=== PATIENT | male | born 1975 | race Caucasian/White ===

== ENCOUNTER 2019-06-19 13:13 | Emergency (ER) | payer BC ==
--- NOTE | 2019-06-19 13:35 | EDM.PDOC ---
ED HPI GENERAL MEDICAL PROBLEM - General Chief Complaint: Upper Extremity Injury/Pain Stated Complaint: PAIN IN LT WRIST Time Seen by Provider: 06/19/19 13:16 Source of Information: Reports: Patient History Limitations: Reports: No Limitations - History of Present Illness INITIAL COMMENTS - FREE TEXT/NARRATIVE: HISTORY AND PHYSICAL: History of present illness: Patient is a 43-year-old male who presents to the emergency room today with complaints of hand and wrist pain on the right. States approximately 2 weeks ago he heard a popping sensation just below his fifth digit and since that time has had increased pain. He states he experiences the pain most when he is grasping or palpating the area. States the pain starts just below the fifth digit and goes up into his wrist and has progressively gotten higher along the upper extremity. Besides noticing the "popping sensation" he does not recall any physical injury or trauma. He denies any numbness, tingling or saddle paresthesias. Denies any weakness of the extremity. He is left-hand dominant. He has been using [id number] Tylenol and ibuprofen with minimal and unsatisfactory relief. Review of systems: As per history of present illness and below otherwise all systems reviewed and negative. Past medical history: As per history of present illness and as reviewed below otherwise noncontributory. Surgical history: As per history of present illness and as reviewed below otherwise noncontributory. Social history: See social history for further information Family history: As per history of present illness and as reviewed below otherwise noncontributory. Physical exam: General: Well developed and well nourished HEENT: Atraumatic, normocephalic, pupils equal and reactive bilaterally, negative for conjunctival pallor or scleral icterus, mucous membranes moist, TMs normal bilaterally, throat clear, neck supple, nontender, trachea midline. No drooling or trismus noted. No meningeal signs. No hot potato voice noted. Lungs: Clear to auscultation, breath sounds equal bilaterally. Heart: S1S2, regular rate and rhythm without overt murmur Abdomen: Soft, nondistended, nontender. Skin: Intact, warm, dry. No lesions or rashes noted. Extremities: Atraumatic, moves all extremities per self without difficulty or deficits. Strong equal grasp bilaterally. Strong radial pulse. Cap refill less than 3 seconds. Neurovascular unremarkable. Neuro: Awake, alert, oriented. Cranial nerves II through XII unremarkable. Cerebellum unremarkable. Motor and sensory unremarkable throughout. Exam nonfocal. Notes: X-ray shows no acute findings. We discussed following up with orthopedics. Supportive care measures were reviewed and discussed. Voices understanding and is agreeable to plan of care. Denies any further questions or concerns at this time. Diagnostics: X-ray Therapeutics: Splint Prescription: Diclofenac Impression: Right hand pain Plan: 1. Rest, ice, elevate the affected extremity. Please wear the splint as directed. 2. Tylenol as needed for pain management. Do NOT take any additional NSAIDS such as Aleve or Ibuprofen while taking Diclofenac. Please take with food. 3. Follow up with the Orthopedic provider as we discussed. Return to the ED as needed and as discussed. Definitive disposition and diagnosis as appropriate pending reevaluation and review of above. Right Wrist Pain Score (Numeric/FACES): 0 - Related Data Allergies Allergy/AdvReac Type Severity Reaction Status Date / Time meperidine [From Demerol] Allergy Hallucinati Verified 06/19/19 13:30 ons Home Meds: Home Meds Acetaminophen [Tylenol] 800 mg PO QID 06/19/19 [History] Diclofenac Sodium [Voltaren] 75 mg PO BIDMEALS PRN #30 tab.cr 06/19/19 [Rx] Ibuprofen [Motrin] 1,500 mg PO QID 06/19/19 [History] Review of Systems - Review of Systems Review Of Systems: Comprehensive ROS is negative, except as noted in HPI. ED EXAM, GENERAL - Physical Exam Exam: See Below (See dictation) Course - Vital Signs Last Recorded V/S: Last Vital Signs Temp 97.5 F 06/19/19 13:27 Pulse 88 06/19/19 13:27 Resp 20 06/19/19 13:27 BP 151/85 H 06/19/19 13:27 Pulse Ox 97 06/19/19 13:27 - Orders/Labs/Meds Orders: Active Orders 24 hr Category Date Time Status DME for Discharge [COMM] Stat Oth 06/19/19 14:08 Ordered Departure - Departure Time of Disposition: 14:09 Disposition: Home, Self-Care 01 Clinical Impression: Right hand pain - Discharge Information Prescriptions: Diclofenac Sodium [Voltaren] 75 mg PO BIDMEALS PRN #30 tab.cr PRN Reason: Pain Instructions: Wrist Pain, Adult, [id number] Referrals: PCP,None [Primary Care Provider] - Forms: ED Department Discharge Additional Instructions: The following information is given to patients seen in the emergency department who are being discharged to home. This information is to outline your options for follow-up care. We provide all patients seen in our emergency department with a follow-up referral. The need for follow-up, as well as the timing and circumstances, are variable depending upon the specifics of your emergency department visit. If you don't have a primary care physician on staff, we will provide you with a referral. We always advise you to contact your personal physician following an emergency department visit to inform them of the circumstance of the visit and for follow-up with them and/or the need for any referrals to a consulting specialist. The emergency department will also refer you to a specialist when appropriate. This referral assures that you have the opportunity for follow-up care with a specialist. All of these measure are taken in an effort to provide you with optimal care, which includes your follow-up. Under all circumstances we always encourage you to contact your private physician who remains a resource for coordinating your care. When calling for follow-up care, please make the office aware that this follow-up is from your recent emergency room visit. If for any reason you are refused follow-up, please contact the [facility] at and asked to speak to the emergency department charge nurse. [facility] [address] [place] [id number] [address] 1. Rest, ice, elevate the affected extremity. Please wear the splint as directed. 2. Tylenol as needed for pain management. Do NOT take any additional NSAIDS such as Aleve or Ibuprofen while taking Diclofenac. Please take with food. 3. Follow up with the Orthopedic provider as we discussed. Return to the ED as needed and as discussed. Sepsis Event Note - Evaluation Sepsis Screening Result: No Definite Risk - Focused Exam Vital Signs: Vital Signs Temp Pulse Resp BP Pulse Ox 06/19/19 13:27 97.5 F 88 20 151/85 H 97 Date Exam was Performed: 06/19/19 Time Exam was Performed: 14:28 - My Orders Last 24 Hours: My Active Orders 06/19/19 14:08 DME for Discharge [COMM] Stat - Assessment/Plan Last 24 Hours: My Active Orders 06/19/19 14:08 DME for Discharge [COMM] Stat
--- NOTE | 2019-06-19 14:06 | CR ---
INDICATION: Pain and popping at the ulnar aspect right hand on going for 2 days. TECHNIQUE: Three views right hand. IMPRESSION: No fracture. No bone lesion. Joint spaces are maintained. Soft tissues appear normal. Dictated by Teo Saleh MD @ Jun 19 2019 2:05PM Signed by Dr. Teo Saleh @ Jun 19 2019 2:05PM
== END 2019-06-19 14:26 | disposition home or self-care (01) ==
LOC: MW.ED 13:13
DX: M79.641 Pain in right hand (principal); Z88.8 Allergy status to other drugs, medicaments and biological substances
CPT/HCPCS: 73130-26-RT; 73130-RT; 99282; 99283-25

== ENCOUNTER 2020-09-22 10:04 | Day surgery (SDC) | payer BC ==
--- NOTE | 2020-09-22 09:47 | PCM.PREANE ---
Preanesthetic Assessment - Anesthesia/Transfusion/Family Hx Anesthesia History: Prior Anesthesia Without Reaction Transfusion History: No Prior Transfusion(s) - Review of Systems General: No Symptoms Pulmonary: No Symptoms Cardiovascular: No Symptoms Gastrointestinal: Decreased Appetite, Difficulty Swallowing Neurological: No Symptoms Other: Reports: None - Physical Assessment NPO Status Date: 09/22/20 NPO Status Time: 00:00 Height: 6 ft 2 in Weight: 309 lb ASA Class: 3 Mental Status: Alert & Oriented x3 Airway Class: Mallampati = 2 Dentition: Reports: Normal Dentition ROM/Head Extension: Full Lungs: Clear to Auscultation, Normal Respiratory Effort Cardiovascular: Regular Rate, Regular Rhythm - Allergies Allergies/Adverse Reactions: Allergies Allergy/AdvReac Type Severity Reaction Status Date / Time meperidine [From Demerol] Allergy Hallucinati Verified 09/18/20 09:11 ons prednisone Allergy Itching Verified 09/18/20 09:13 - Acknowledgements Anesthesia Type Planned: General Anesthesia Pt an Appropriate Candidate for the Planned Anesthesia: Yes Alternatives and Risks of Anesthesia Discussed w Pt/Guardian: Yes Pt/Guardian Understands and Agrees with Anesthesia Plan: Yes PreAnesthesia Questionnaire HEENT History: Reports: None Cardiovascular History: Reports: Arrhythmia Respiratory History: Reports: Sleep Apnea Other Respiratory History: does not use CPAP Gastrointestinal History: Reports: GERD, Other (See Below) Other Gastrointestinal History: difficulty swallowing solid foods at times Genitourinary History: Reports: None Musculoskeletal History: Reports: Fracture Other Musculoskeletal History: ribs, crush L leg, thumb, nose, L fingers, Neurological History: Reports: None Psychiatric History: Reports: None Endocrine/Metabolic History: Reports: Obesity/BMI 30+ Hematologic History: Reports: None Immunologic History: Reports: None Oncologic (Cancer) History: Reports: None Dermatologic History: Reports: None - Infectious Disease History Infectious Disease History: Reports: Chicken Pox, Influenza - Past Surgical History Head Surgeries/Procedures: Reports: None HEENT Surgical History: Reports: None Cardiovascular Surgical History: Reports: None Respiratory Surgical History: Reports: None GI Surgical History: Reports: Appendectomy Male Surgical History: Reports: None Endocrine Surgical History: Reports: None Neurological Surgical History: Reports: None Musculoskeletal Surgical History: Reports: None Oncologic Surgical History: Reports: None Dermatological Surgical History: Reports: None - SUBSTANCE USE Tobacco Use Status *Q: Former Tobacco User Tobacco Use Within Last Twelve Months: No - HOME MEDS Home Medications: Home Meds Pantoprazole Sodium [Protonix] 40 mg PO DAILY 09/18/20 [History] - CURRENT (IN HOUSE) MEDS Current Meds: Current Medications Lactated Ringer's (Ringers, Lactated) 1,000 mls @ 125 mls/hr IV ASDIRECTED ROLANDO Discontinued Medications Dexmedetomidine HCl (Dexmedetomidine 200 Mcg/2 Ml Sdv) Confirm Administered Dose 200 mcg .ROUTE .STK-MED ONE Stop: 09/22/20 09:23 Fentanyl (Fentanyl 100 Mcg/2 Ml Sdv) Confirm Administered Dose 100 mcg .ROUTE .STK-MED ONE Stop: 09/22/20 09:23 Lidocaine (Lidocaine 2% 5 Ml Sdv) Confirm Administered Dose 5 ml .ROUTE .STK-MED ONE Stop: 09/22/20 09:22 Ondansetron HCl (Ondansetron 4 Mg/2 Ml Sdv) Confirm Administered Dose 4 mg .ROUTE .STK-MED ONE Stop: 09/22/20 09:22 Propofol (Propofol 200 Mg/20 Ml Sdv) Confirm Administered Dose 200 mg .ROUTE .STK-MED ONE Stop: 09/22/20 09:22
[~2020-09-22 10:04] MED LIST: Dexmedetomidine 200 MCG/2 ML SDV ONE; Lactated Ringers 1,000 ML IV SCH; Lidocaine 2% 5 ML SDV ONE; Ondansetron 4 MG/2 ML SDV ONE; Propofol 200 MG/20 ML SDV ONE; fentaNYL 100 MCG/2 ML SDV ONE
[2020-09-22] MEDS ORDERED: Naloxone 0.4 MG/ML Syringe ONE (12:06)
--- NOTE | 2020-09-22 12:23 | PCM.POSTAN ---
POST ANESTHESIA ASSESSMENT - MENTAL STATUS Mental Status: Alert, Oriented - VITAL SIGNS Vital Signs: Last Vital Signs Temp 97.5 F 09/22/20 10:23 Pulse 55 L 09/22/20 10:23 Resp 16 09/22/20 10:23 BP 152/84 H 09/22/20 10:23 Pulse Ox 95 09/22/20 10:23 - RESPIRATORY Respiratory Status: Respiratory Rate WNL, Airway Patent, O2 Saturation Stable - CARDIOVASCULAR CV Status: Pulse Rate WNL, Blood Pressure Stable - GASTROINTESTINAL GI Status: No Symptoms - POST OP HYDRATION Hydration Status: Adequate & Stable
--- NOTE | 2020-09-22 12:23 | PCM48HPAN ---
Post Anesthesia Note - EVALUATION WITHIN 48HRS OF ANESTHETIC Vital Signs in Normal Range: Yes Patient Participated in Evaluation: Yes Respiratory Function Stable: Yes Airway Patent: Yes Cardiovascular Function Stable: Yes Hydration Status Stable: Yes Pain Control Satisfactory: Yes Nausea and Vomiting Control Satisfactory: Yes Mental Status Recovered: Yes Vital Signs: Last Vital Signs Temp 97.5 F 09/22/20 10:23 Pulse 55 L 09/22/20 10:23 Resp 16 09/22/20 10:23 BP 152/84 H 09/22/20 10:23 Pulse Ox 95 09/22/20 10:23
--- NOTE | 2020-09-22 12:38 | PCM.OPNOTE ---
- General Post-Op/Procedure Note Date of Surgery/Procedure: 09/22/20 Operative Procedure(s): Esophagogastroduodenoscopy with gastric biopsies Pre Op Diagnosis: DYSPHAGIA. ODYNOPHAGIA. Post-Op Diagnosis: Acute gastritis w/ superficial gastric ulcerations. Anesthesia Technique: MAC (ASA II) Primary Surgeon: Júnior Morales Condition: Good Free Text/Narrative:: Intake & Output 09/22/20 09/22/20 09/22/20 03:59 11:59 19:59 Intake Total 950 Balance 950 DICTATION [id number] CPT CODE 58669
[2020-09-22] MEDS ORDERED: Lactated Ringers 1,000 ML IV SCH (12:45)
--- NOTE | 2020-09-22 13:07 | OR ---
SURGEON: Júnior Morales M.D. DATE OF PROCEDURE: 09/22/2020 OPERATION PERFORMED: Esophagogastroduodenoscopy with gastric biopsy. PRIMARY SURGEON: Júnior Morales M.D. ANESTHESIA: MAC. ASA CLASSIFICATION: II. PREOPERATIVE DIAGNOSIS: Dysphagia with odynophagia. POSTOPERATIVE DIAGNOSIS: Acute gastritis with superficial distal gastric ulcerations. DESCRIPTION OF PROCEDURE: The patient was taken to the endoscopy room and maintained on the endoscopy cart in the supine position. Time-out was called for appropriate identification of the patient and procedure. Monitored anesthesia care was provided. The bite block was placed between the patient's teeth. The gastroscope was inserted through the bite block into the oropharynx and advanced without difficulty through the esophagus and stomach into the duodenum, where examination was now carried out in a retrograde fashion. The duodenum showed no acute inflammatory changes or ulcerations. The stomach did show very acute gastritis with superficial gastric ulcerations. No acutely bleeding lesions were noted. The entire stomach showed this inflammatory pattern. The gastroscope was retroflexed to visualize the proximal stomach, where again significant gastritis was noted. No acute ulcerations or erosions were noted proximally. The GE junction was well defined and showed no acute inflammatory changes or ulcerations. The esophagus itself demonstrated good contractility. No mid or proximal lesions were identified. The vocal cords were briefly visualized as the scope was withdrawn. No vocal cord lesions were identified. The gastroscope was then removed with the patient having tolerated the procedure well. He will be started on Carafate and Nexium and be seen back in the office to discuss the endoscopic findings and pathology report. MADIE / JULIA /[id number]
== END 2020-09-22 13:03 | disposition home or self-care (01) ==
LOC: MW.SDS 10:04
PROVIDERS: ATTEND Surgery
DX: K29.00 Acute gastritis without bleeding (principal); K29.50 Unspecified chronic gastritis without bleeding; B96.81 Helicobacter pylori [H. pylori] as the cause of diseases classified elsewhere; R07.89 Other chest pain; E66.9 Obesity, unspecified; Z68.39 Body mass index [BMI] 39.0-39.9, adult; Z88.8 Allergy status to other drugs, medicaments and biological substances; Z79.899 Other long term (current) drug therapy; Z87.891 Personal history of nicotine dependence
CPT/HCPCS: 43239; A9270; J2405; J2704; J3010; J7120; 00731; 88305; 88342

== ENCOUNTER 2020-11-14 13:21 | Emergency (ER) | payer BC ==
[2020-11-14] MEDS ORDERED: Morphine 4 MG/ML Syringe IVPUSH ONE (17:31)
[2020-11-14] MEDS ORDERED: Ondansetron 4 MG/2 ML SDV IVPUSH ONE (17:31)
[2020-11-14] MEDS ORDERED: Sodium Chloride 0.9% 1,000 ML IV ONE (17:31)
[2020-11-14 17:51] LABS: BLOOD UREA NITROGEN,BUN 13 mg/dL (7.0-18.0); CHLORIDE,CL 97 mmol/L (98-107); GLUCOSE RANDOM 132 mg/dL (74-106); POTASSIUM,K 4.1 mmol/L (3.5-5.1); SODIUM,NA 131 mmol/L (136-148)
--- NOTE | 2020-11-14 18:06 | EDM.PDOC ---
ED HPI GENERAL MEDICAL PROBLEM - General Chief Complaint: Genitourinary Problem Stated Complaint: CANT URINATE Time Seen by Provider: 11/14/20 16:03 Source of Information: Reports: Patient History Limitations: Reports: No Limitations - History of Present Illness INITIAL COMMENTS - FREE TEXT/NARRATIVE: HISTORY AND PHYSICAL: History of present illness: Patient is a 44-year-old male who presents to the emergency room with complaints of right flank pain and urinary retention. Patient states he voided normally last evening. Woke up with mild right flank pain. Noticed he was only urinating a small amount, last void at 10:45 AM. Since then he has had increased pain in the suprapubic area as he has been unable to void. Does have a history of urinary tract infections. Patient denies any injury/trauma, fever, chills, headache, change in vision, syncope or near syncope. Denies any chest pain, back pain, shortness of breath or cough. Denies any abdominal pain, nausea, vomiting, diarrhea, constipation or dysuria. Denies any testicular redness, swelling or tenderness. Has not noted any blood in urine or stool. Patient has been eating and drinking appropriately. Review of systems: As per history of present illness and below otherwise all systems reviewed and negative. Past medical history: As per history of present illness and as reviewed below otherwise noncon tributory. Surgical history: As per history of present illness and as reviewed below otherwise noncontributory. Social history: See social history for further information Family history: As per history of present illness and as reviewed below otherwise noncontributory. Physical exam: General: Well developed and well nourished. Alert and orientated x 3. Nontoxic in appearance and in no acute distress. Vital signs are stable and have been reviewed by me. Nursing notes were reviewed. HEENT: Atraumatic, normocephalic, pupils equal and reactive bilaterally, negative for conjunctival pallor or scleral icterus, mucous membranes moist, TMs normal bilaterally, throat clear, neck supple, nontender, trachea midline. No drooling or trismus noted. No meningeal signs. No hot potato voice noted. Lungs: Clear to auscultation bilaterally. No wheezes, rales, or rhonchi. Chest nontender. Normal work of breathing, no accessory muscles used. Heart: S1S2, regular rate and rhythm without overt murmur, gallops, or rubs. No JVD. No peripheral edema Abdomen: Soft, nondistended, suprapubic tenderness. Normoactive bowel sounds. Negative for masses. Right sided costovertebral tenderness. Skin: Intact, warm, dry. No lesions or rashes noted. Hematologic: No petechiae or purpra. Mucosa appropriate color and normal nail bed color and refill. Extremities: Atraumatic, moves all extremities per self without difficulty or deficits, negative for cords or calf pain. Neurovascular unremarkable. Neuro: Awake, alert, oriented. Cranial nerves II through XII unremarkable. Cerebellum unremarkable. Motor and sensory unremarkable throughout. Exam nonfocal. Psychiatric: Mood and affect are appropriate. Normal thought process. Answering questions appropriately. Please note that the patient was seen and evaluated during the 2019 SARS-CoV-2 novel coronavirus pandemic period. Community viral transmission is ongoing at time of this encounter and the emergency department is operating under pandemic response procedures. Medical Decision Making: Patient is a 44-year-old male who presents to the emergency room with complaints of right flank pain and urinary retention. Patient has no history of kidney sto reinaldo. States he has had bladder infections which have "gotten really bad". Bladder scanner shows 410 mL. Lab work is pending. Patient has a leukocytosis of 19.4 with shift. Patient has tried multiple times to get a urine, will straight cath, urine pending CT shows no urinary tract stone or obstruction is evident. The kidneys are normal in size and shape and demonstrate normal nephrograms. A Nick catheter is present in the bladder, and the bladder is empty. The prostate is negative. Etiology of right flank pain and leukocytosis not evident. Fatty liver. Patient states the Nick catheter is very uncomfortable, we discussed the benefits of keeping the Nick in while he is treating the urinary tract infection especially with his urinary retention. He would prefer to have the Nick catheter removed at this time. Will remove for patient comfort and request. Patient is able to tolerate oral fluids and he has been eating well. Due to the COVID-19 crisis, there are no beds available. We will trial outpatient oral antibiotics. I have talked with the patient about today's findings, in addition to providing specific details for plan of care. Patient is agreeable and understanding. He states he is comfortable being discharged home with outpatient antibiotic therapy and pain management. We discussed in great length signs and symptoms that would prompt him to the return to the emergency room. Reassessment at the time of disposition demonstrates that the patient is in no acute distress. The patient is stable for discharge, counseling was provided and we discussed in great detail signs and symptoms that would prompt them to return to the Emergency Department. Medication and supportive care measures were reviewed and discussed. Voices understanding and is agreeable to plan of care. Denies any further questions or concerns at this time. Diagnostics: CBC, CMP, UA, urine culture Therapeutics: IV fluid, morphine, Zofran, Rocephin Prescription: Cipro, Pyridium, [place] Impression: Pyelonephritis Plan: 1. You were evaluated today on an emergent basis. Your urine shows a significant urinary tract infection. Please take the antibiotic as directed. 2. You can alternate Tylenol and ibuprofen as needed for pain and fever management. 3. We encourage you to follow up with your primary care provider and/or recommended specialist in the next few days for re-evaluation and further care/management. 4. If your symptoms should worsen, new symptoms develop or any of the signs and symptoms we discussed should arise please return to the emergency room or call 911 (if needed). Definitive disposition and diagnosis as appropriate pending reevaluation and review of above. Bladder Pain Score (Numeric/FACES): 8 - Related Data Allergies Allergy/AdvReac Type Severity Reaction Status Date / Time meperidine [From Demerol] Allergy Hallucinati Verified 09/18/20 09:11 ons prednisone Allergy Itching Verified 09/18/20 09:13 Home Meds: Home Meds Pantoprazole Sodium [Protonix] 40 mg PO BID 30 Days #60 tab-cap 09/22/20 [Rx] Sucralfate 1 gm PO QID 30 Days #120 tablet 09/22/20 [Rx] Ciprofloxacin HCl [Cipro] 500 mg PO BID 7 Days #14 tablet 11/14/20 [Rx] Hydrocodone/Acetaminophen [HYDROcodone-Acetaminophen 5-325 MG] 1 - 2 tab PO Q4HR PRN #20 tablet 11/14/20 [Rx] Phenazopyridine HCl [Pyridium] 100 mg PO TID 2 Days #6 tablet 11/14/20 [Rx] Past Medical History HEENT History: Reports: None Cardiovascular History: Reports: Arrhythmia Respiratory History: Reports: Sleep Apnea Other Respiratory History: does not use CPAP Gastrointestinal History: Reports: GERD, Other (See Below) Other Gastrointestinal History: difficulty swallowing solid foods at times Genitourinary History: Reports: None Musculoskeletal History: Reports: Fracture Other Musculoskeletal History: ribs, crush L leg, thumb, nose, L fingers, Neurological History: Reports: None Psychiatric History: Reports: None Endocrine/Metabolic History: Reports: Obesity/BMI 30+ Hematologic History: Reports: None Immunologic History: Reports: None Oncologic (Cancer) History: Reports: None Dermatologic History: Reports: None - Infectious Disease History Infectious Disease History: Reports: Chicken Pox, Influenza - Past Surgical History Head Surgeries/Procedures: Reports: None HEENT Surgical History: Reports: None Cardiovascular Surgical History: Reports: None Respiratory Surgical History: Reports: None GI Surgical History: Reports: Appendectomy, EGD Male Surgical History: Reports: None Endocrine Surgical History: Reports: None Neurological Surgical History: Reports: None Musculoskeletal Surgical History: Reports: None Oncologic Surgical History: Reports: None Dermatological Surgical History: Reports: None Social & Family History - Family History Family Medical History: No Pertinent Family History - Tobacco Use Tobacco Use Status *Q: Current Every Day Tobacco User Years of Tobacco use: 5 Packs/Tins Daily: 0.5 - Recreational Drug Use Recreational Drug Use: No ED ROS GENERAL - Review of Systems Review Of Systems: Comprehensive ROS is negative, except as noted in HPI. ED EXAM, RENAL/ - Physical Exam Exam: See Below (See dictation) Course - Vital Signs Last Recorded V/S: Last Vital Signs Temp 98.2 F 11/14/20 18:20 Pulse 82 11/14/20 18:20 Resp 18 11/14/20 18:20 BP 138/73 11/14/20 18:20 Pulse Ox 97 11/14/20 18:20 - Orders/Labs/Meds Orders: Active Orders 24 hr Category Date Time Status Bladder Scan [RC] ASDIRECTED Care 11/14/20 15:52 Active Insert Urinary Catheter [OM.PC] Q24H Care 11/14/20 17:00 Ordered Urinary Catheter Assessment [RC] ASDIRECTED Care 11/14/20 17:01 Active CULTURE URINE [MREF] Stat Lab 11/14/20 19:20 Received cefTRIAXone [Rocephin in Dextrose,Iso-Osm 1 GM/50 ML] 1 Med 11/14/20 19:51 Active gm Premix Bag 1 bag IV ONETIME Medication Orders Ceftriaxone Sodium/Dextrose 1 (gm/ Premix) 50 mls @ 100 mls/hr IV ONETIME ONE Stop: 11/14/20 20:20 Last Admin: 11/14/20 19:59 Dose: 100 mls/hr Documented by: Labs: Laboratory Tests 11/14/20 11/14/20 11/14/20 Range/Units 17:19 17:19 19:20 WBC 19.44 H (4.0-11.0) K/uL RBC 5.36 (4.50-5.90) M/uL Hgb 17.2 H (13.0-17.0) g/dL Hct 47.5 (38.0-50.0) % MCV 88.6 (80.0-98.0) fL MCH 32.1 H (27.0-32.0) pg MCHC 36.2 (31.0-37.0) g/dL RDW Std Deviation 42.1 (28.0-62.0) fl RDW Coeff of Sae 13 (11.0-15.0) % Plt Count 242 (150-400) K/uL MPV 10.80 (7.40-12.00) fL Neut % (Auto) 85.9 H (48.0-80.0) % Lymph % (Auto) 6.8 L (16.0-40.0) % [place] % (Auto) 7.1 (0.0-15.0) % Eos % (Auto) 0.1 (0.0-7.0) % Baso % (Auto) 0.1 (0.0-1.5) % Neut # (Auto) 16.7 H (1.4-5.7) K/uL Lymph # (Auto) 1.3 (0.6-2.4) K/uL [place] # (Auto) 1.4 H (0.0-0.8) K/uL Eos # (Auto) 0.0 (0.0-0.7) K/uL Baso # (Auto) 0.0 (0.0-0.1) K/uL Nucleated RBC % 0.0 /100WBC Nucleated RBCs # 0 K/uL Sodium 131 L (136-148) mmol/L Potassium 4.1 (3.5-5.1) mmol/L Chloride 97 L (98-107) mmol/L Carbon Dioxide 22.0 (21.0-32.0) mmol/L BUN 13 (7.0-18.0) mg/dL Creatinine 1.1 (0.8-1.3) mg/dL Est Cr Clr Drug Dosing 99.64 mL/min Estimated GFR (MDRD) > 60.0 ml/min Glucose 132 H (74-106) mg/dL Calcium 8.6 (8.5-10.1) mg/dL Total Bilirubin 0.9 (0.2-1.0) mg/dL AST 20 (15-37) IU/L ALT 58 (14-63) IU/L Alkaline Phosphatase 71 (46-116) U/L Total Protein 7.9 (6.4-8.2) g/dL Albumin 3.7 (3.4-5.0) g/dL Globulin 4.2 H (2.6-4.0) g/dL Albumin/Globulin Ratio 0.9 (0.9-1.6) Urine Color DARK YELLOW Urine Appearance SLT CLOUDY Urine pH 6.0 (5.0-8.0) Ur Specific [place] 1.020 (1.001-1.035) Urine Protein NEGATIVE (NEGATIVE) mg/dL Urine Glucose (UA) NEGATIVE (NEGATIVE) mg/dL Urine Ketones NEGATIVE (NEGATIVE) mg/dL Urine Occult Blood SMALL H (NEGATIVE) Urine Nitrite NEGATIVE (NEGATIVE) Urine Bilirubin NEGATIVE (NEGATIVE) Urine Urobilinogen 1.0 (<2.0) EU/dL Ur Leukocyte Esterase MODERATE H (NEGATIVE) Urine RBC 0-2 (0-2/HPF) Urine WBC 35-40 (0-5/HPF) Ur Epithelial Cells RARE (NONE-FEW) Urine Bacteria FEW (NEGATIVE) Urine Mucus LIGHT (NONE-MOD) Meds: Medications Generic Name Dose Route Start Last Admin Trade Name Freq PRN Reason Stop Dose Admin Ceftriaxone Sodium/Dextrose 1 50 mls @ 100 mls/hr 11/14/20 19:51 11/14/20 19:59 gm/ Premix IV 11/14/20 20:20 100 mls/hr ONETIME ONE Administration Discontinued Medications Generic Name Dose Route Start Last Admin Trade Name Freq PRN Reason Stop Dose Admin Hydromorphone HCl 0.5 mg 11/14/20 19:51 11/14/20 19:59 Hydromorphone 2 Mg/Ml Syringe IVPUSH 11/14/20 19:52 0.5 mg ONETIME ONE Administration Sodium Chloride 1,000 mls @ 999 mls/hr 11/14/20 17:31 11/14/20 18:13 Normal Saline IV 11/14/20 18:31 999 mls/hr STAT ONE Administration Iopamidol 100 ml 11/14/20 19:07 11/14/20 19:07 Iopamidol 755 Mg/Ml 500 Ml Multipack Bottle IVPUSH 11/14/20 19:08 100 ml ONETIME STA Administration Morphine Sulfate 4 mg 11/14/20 17:31 11/14/20 18:13 Morphine 4 Mg/Ml Syringe IVPUSH 11/14/20 17:32 4 mg ONETIME ONE Administration Ondansetron HCl 4 mg 11/14/20 17:31 11/14/20 18:13 Ondansetron 4 Mg/2 Ml Sdv IVPUSH 11/14/20 17:32 4 mg ONETIME ONE Administration Departure - Departure Time of Disposition: 19:59 Disposition: Home, Self-Care 01 Clinical Impression: Pyelonephritis - Discharge Information Prescriptions: Ciprofloxacin HCl [Cipro] 500 mg PO BID 7 Days #14 tablet Hydrocodone/Acetaminophen [HYDROcodone-Acetaminophen 5-325 MG] 1 - 2 tab PO Q4HR PRN #20 tablet PRN Reason: Pain (Moderate 4-6) Phenazopyridine HCl [Pyridium] 100 mg PO TID 2 Days #6 tablet Instructions: Pyelonephritis, Adult, [id number] Referrals: PCP,None [Primary Care Provider] - Forms: ED Department Discharge Additional Instructions: The following information is given to patients seen in the emergency department who are being discharged to home. This information is to outline your options for follow-up care. We provide all patients seen in our emergency department with a follow-up referral. The need for follow-up, as well as the timing and circumstances, are variable depending upon the specifics of your emergency department visit. If you don't have a primary care physician on staff, we will provide you with a referral. We always advise you to contact your personal physician following an emergency department visit to inform them of the circumstance of the visit and for follow-up with them and/or the need for any referrals to a consulting specialist. The emergency department will also refer you to a specialist when appropriate. This referral assures that you have the opportunity for follow-up care with a specialist. All of these measure are taken in an effort to provide you with optimal care, which includes your follow-up. Under all circumstances we always encourage you to contact your private physician who remains a resource for coordinating your care. When calling for follow-up care, please make the office aware that this follow-up is from your recent emergency room visit. If for any reason you are refused follow-up, please contact the [facility] Emergency Department at and asked to speak to the emergency department charge nurse. [facility] [address] [place] [id number] [place] [address] Thank you for choosing the [facility] emergency department in [place] for your medical needs today. It was a pleasure caring for you. Today you were seen in the emergency department for UTI and urinary retention. 1. You were evaluated today on an emergent basis. Your urine shows a significant urinary tract infection. Please take the antibiotic as directed. If you should develop urinary retention again you will need to return to the emergency room for possible Nick catheter placement. 2. You can alternate Tylenol and ibuprofen as needed for pain and fever management. 3. We encourage you to follow up with your primary care provider and/or recommended specialist in the next few days for re-evaluation and further care/management. 4. If your symptoms should worsen, new symptoms develop or any of the signs and symptoms we discussed should arise please return to the emergency room or call 911 (if needed). Sepsis Event Note (ED) - Focused Exam Vital Signs: Vital Signs Temp Pulse Resp BP Pulse Ox 11/14/20 18:20 98.2 F 82 18 138/73 97 11/14/20 17:10 98.3 F 87 18 138/73 98 11/14/20 16:00 98.6 F 82 18 141/73 H 97 11/14/20 15:46 99.1 F 113 H 18 115/65 96 - My Orders Last 24 Hours: My Active Orders 11/14/20 15:52 Bladder Scan [RC] ASDIRECTED 11/14/20 17:00 Insert Urinary Catheter [OM.PC] Q24H 11/14/20 17:01 Urinary Catheter Assessment [RC] ASDIRECTED 11/14/20 19:20 CULTURE URINE [MREF] Stat 11/14/20 19:51 cefTRIAXone [Rocephin in Dextrose,Iso-Osm 1 GM/50 ML] 1 gm Premix Bag 1 bag IV ONETIME - Assessment/Plan Last 24 Hours: My Active Orders 11/14/20 15:52 Bladder Scan [RC] ASDIRECTED 11/14/20 17:00 Insert Urinary Catheter [OM.PC] Q24H 11/14/20 17:01 Urinary Catheter Assessment [RC] ASDIRECTED 11/14/20 19:20 CULTURE URINE [MREF] Stat 11/14/20 19:51 cefTRIAXone [Rocephin in Dextrose,Iso-Osm 1 GM/50 ML] 1 gm Premix Bag 1 bag IV ONETIME
[2020-11-14] MEDS ORDERED: Iopamidol 755 MG/ML 500 ML Multipack Bottle IVPUSH STA (19:07)
[2020-11-14] MEDS ORDERED: HYDROmorphone 2 MG/ML Syringe IVPUSH ONE (19:51)
[2020-11-14] MEDS ORDERED: cefTRIAXone 1 GM in Premix Bag 1 BAG IV ONE (19:51)
--- NOTE | 2020-11-14 19:56 | CT ---
INDICATION: Right flank pain and leukocytosis. TECHNIQUE: Volumetric helical scanning of the abdomen and pelvis was performed without and with 100 cc of Isovue 370 contrast material IV. Coronal and sagittal reconstructions were obtained. COMPARISON: None. FINDINGS: No urinary tract stone or obstruction is evident. The kidneys are normal in size and shape and demonstrate normal nephrograms. A Nick catheter is present in the bladder, and the bladder is empty. The prostate is negative. Fatty change is demonstrated in the liver. The liver is normal in size and shape. The bile ducts, spleen, adrenal glands and pancreas are negative. No lymphadenopathy or free fluid is demonstrated. The bowel is unremarkable. The lung bases are clear, and the heart size is normal. IMPRESSION: 1. Etiology of right flank pain and leukocytosis not evident. 2. Fatty liver. Please note that all CT scans at this facility use dose modulation, iterative reconstruction, and/or weight-based dosing when appropriate to reduce radiation dose to as low as reasonably achievable. Dictated by Girish Hager MD @ 11/14/2020 7:54:06 PM (Electronically Signed)
== END 2020-11-14 21:14 | disposition home or self-care (01) ==
LOC: MW.ED 13:21
DX: N12 Tubulo-interstitial nephritis, not specified as acute or chronic (principal); K21.9 Gastro-esophageal reflux disease without esophagitis; E66.9 Obesity, unspecified; Z68.41 Body mass index [BMI] 40.0-44.9, adult; Z88.5 Allergy status to narcotic agent; Z72.0 Tobacco use; Z88.8 Allergy status to other drugs, medicaments and biological substances
CPT/HCPCS: 36415; 74178; 80053; 81001; 85025; 87086; 87088; 87186; 96365; 96375; 99284; J0696; J1170; J2270; J2405; J7030; Q9967

== ENCOUNTER 2021-01-29 10:55 | Emergency (ER) | payer BC ==
[2021-01-29] MEDS ORDERED: Sodium Chloride 0.9% 1,000 ML IV ONE (13:18)
[2021-01-29] MEDS ORDERED: Cephalexin 500 MG Cap PO ONE (16:06)
--- NOTE | 2021-01-29 16:09 | EDM.PDOC ---
ED HPI GENERAL MEDICAL PROBLEM - General Chief Complaint: Genitourinary Problem Stated Complaint: POSSIBLE BLADDER INFECTION Time Seen by Provider: 01/29/21 11:30 - History of Present Illness INITIAL COMMENTS - FREE TEXT/NARRATIVE: CHIEF COMPLAINT(S): Bladder pain HISTORY OF PRESENT ILLNESS: This is a 45-year-old man with a past medical history of pyelonephritis who presents to the emergency department with a chief complaint of bladder pain. The patient states that he is feeling the same exact symptoms of one time other than back pain. He states that he feels like he is not urinating enough and is dribbling. He states that he is feeling suprapubic pressure and some dysuria. He denies any penile discharge. He denies any testicular pain or swelling. He states that it is uncomfortable to sit. He denies any vomiting or fever. He currently rates his pain as 6 out of 10. He states that it is intermittent and crampy. There are no exacerbating or relieving factors. Patient states that he is sexually active with one partner. He denies any insertive anal sex. REVIEW OF SYSTEMS: Constitutional: Denies fever, chills. Eyes: Denies eye pain Ears, Nose, Mouth, & Throat: Denies earache Cardiovascular: Denies chest pain Respiratory: Denies shortness of breath Gastrointestinal: Denies Nausea, vomiting, diarrhea, hematochezia. Genitourinary: Denies hematuria Skin:Denies a rash MSK: Denies joint pain Neurological: Denies blurred vision Psychiatric: Denies depression PAST MEDICAL HISTORY: As per history of present illness and as reviewed below otherwise noncontributory. SURGICAL HISTORY: As per history of present illness and as reviewed below otherwise noncontributory. SOCIAL HISTORY: As per history of present illness and as reviewed below otherwise noncontributory. FAMILY HISTORY: As per history of present illness and as reviewed below otherwise noncontributory. EXAMINATION OF ORGAN SYSTEMS/BODY AREAS: Constitutional: Blood pressure is 132/86, heart rate 84, respiratory rate 18 with an oxygen saturation of 95% on room air. Temperature 35.7 General: Well-appearing man who is in no acute distress Psychiatric: Appropriate mood and affect. Eyes: No scleral icterus or conjunctival erythema ENMT: Moist mucous membranes. No pharyngeal erythema Cardiovascular: Regular, rate, and rhythm. No gallops, murmurs, or rubs. Bilateral upper extremity pulses symmetric and intact. No peripheral edema. No JVD. Respiratory: Lungs clear to auscultation bilaterally. No wheezes, rales, or rhonchi. Gastrointestinal: Soft, non-tender, non-distended. Normoactive bowel sounds Genitourinary: No suprapubic tenderness no CVA tenderness. Musculoskeletal: Normal range of motion. Skin: No lesions or abrasions. Neurological: Alert, GCS 15 MEDICAL DECISION MAKING AND COURSE IN THE ED WITH INTERPRETATION/REVIEW OF DIAGNOSTIC STUDIES: This is a 45-year-old man with a past medical history of prior pyelonephritis who comes to the emergency department with concerns for a bladder infection. Patient's vital signs are completely normal at this time. We did do a postvoid residual which was 19 mL. I do not believe that there is any evidence of urinary retention at this time. We will obtain a urinalysis and obtain gonorrhea and chlamydia. I did discuss this with the patient. He was amenable to this plan. Urinalysis reveals trace leukocyte esterase with few bacteria and 6-10 WBCs. Interpretation positive. After lab I did discuss the results with the patient. At this time we will provide the patient with Keflex for urinary tract infection. I discussed that given this recurrence I recommend he follows up with urology as it is atypical for patients to experience urinary tract infections especially males of his age. He was amenable to this plan and had no further questions. DISPOSITION: The patient was discharged home in stable condition. The patient will follow up with urology within 5 to 7 days CONDITION: Fair PROCEDURES: None FINAL IMPRESSION(S)/DIAGNOSES: 1. Acute cystitis Phillip Costa M.D. bladder Pain Score (Numeric/FACES): 6 - Related Data Allergies Allergy/AdvReac Type Severity Reaction Status Date / Time meperidine [From Demerol] Allergy Hallucinati Verified 01/29/21 12:39 ons prednisone Allergy Itching Verified 01/29/21 12:39 Home Meds: Home Meds cephALEXin [Keflex] 500 mg PO Q6H #28 cap 01/29/21 [Rx] Past Medical History HEENT History: Reports: None Cardiovascular History: Reports: Arrhythmia Respiratory History: Reports: Sleep Apnea Other Respiratory History: does not use CPAP Gastrointestinal History: Reports: GERD, Other (See Below) Other Gastrointestinal History: difficulty swallowing solid foods at times Genitourinary History: Reports: None Musculoskeletal History: Reports: Fracture Other Musculoskeletal History: ribs, crush L leg, thumb, nose, L fingers, Neurological History: Reports: None Psychiatric History: Reports: None Endocrine/Metabolic History: Reports: Obesity/BMI 30+ Hematologic History: Reports: None Immunologic History: Reports: None Oncologic (Cancer) History: Reports: None Dermatologic History: Reports: None - Infectious Disease History Infectious Disease History: Reports: Chicken Pox, Influenza - Past Surgical History Head Surgeries/Procedures: Reports: None HEENT Surgical History: Reports: None Cardiovascular Surgical History: Reports: None Respiratory Surgical History: Reports: None GI Surgical History: Reports: Appendectomy, EGD Male Surgical History: Reports: None Endocrine Surgical History: Reports: None Neurological Surgical History: Reports: None Musculoskeletal Surgical History: Reports: None Oncologic Surgical History: Reports: None Dermatological Surgical History: Reports: None Social & Family History - Family History Family Medical History: No Pertinent Family History - Tobacco Use Tobacco Use Status *Q: Former Tobacco User Years of Tobacco use: 24 Packs/Tins Daily: 1 Used Tobacco, but Quit: Yes Month/Year Tobacco Last Used: 03/2015 - Caffeine Use Caffeine Use: Reports: Coffee, Tea - Recreational Drug Use Recreational Drug Use: No ED ROS GENERAL - Review of Systems Review Of Systems: See Below ED EXAM, GENERAL - Physical Exam Exam: See Below Course - Vital Signs Last Recorded V/S: Last Vital Signs Temp 35.7 C L 01/29/21 12:36 Pulse 80 01/29/21 13:58 Resp 18 01/29/21 12:36 BP 136/87 01/29/21 13:58 Pulse Ox 95 01/29/21 12:36 - Orders/Labs/Meds Labs: Laboratory Tests 01/29/21 01/29/21 Range/Units 13:00 15:03 Urine Color YELLOW Urine Appearance CLEAR Urine pH 5.5 (5.0-8.0) Ur Specific [place] >= 1.030 (1.001-1.035) Urine Protein NEGATIVE (NEGATIVE) mg/dL Urine Glucose (UA) NEGATIVE (NEGATIVE) mg/dL Urine Ketones NEGATIVE (NEGATIVE) mg/dL Urine Occult Blood NEGATIVE (NEGATIVE) Urine Nitrite NEGATIVE (NEGATIVE) Urine Bilirubin NEGATIVE (NEGATIVE) Urine Urobilinogen 0.2 (<2.0) EU/dL Ur Leukocyte Esterase TRACE H (NEGATIVE) Urine RBC 0-2 (0-2/HPF) Urine WBC 6-10 (0-5/HPF) Ur Epithelial Cells FEW (NONE-FEW) Urine Bacteria FEW (NEGATIVE) Urine Mucus LIGHT (NONE-MOD) Chlamydia/GC Source URINE C.trachomatis RNA (TMA) Negative (Negative) N.gonorrhoeae RNA (TMA) Negative (Negative) Meds: Medications Discontinued Medications Generic Name Dose Route Start Last Admin Trade Name Maurice PRN Reason Stop Dose Admin Cephalexin 500 mg 01/29/21 16:06 01/29/21 16:23 Cephalexin 500 Mg Cap PO 01/29/21 16:07 500 mg ONETIME ONE Administration Sodium Chloride 1,000 mls @ 1,000 mls/hr 01/29/21 13:18 01/29/21 13:31 Normal Saline IV 01/29/21 14:17 1,000 mls/hr .Bolus ONE Administration Departure - Departure Time of Disposition: 16:07 Disposition: Home, Self-Care 01 Condition: Fair Clinical Impression: UTI, Urinary tract infectious disease - Discharge Information *PRESCRIPTION DRUG MONITORING PROGRAM REVIEWED*: No *COPY OF PRESCRIPTION DRUG MONITORING REPORT IN PATIENT AR: No Prescriptions: cephALEXin [Keflex] 500 mg PO Q6H #28 cap Instructions: Urinary Tract Infection, Adult, [id number] Referrals: [facility] [Primary Care Provider] - Forms: ED Department Discharge Additional Instructions: You were evaluated today on an emergent basis. At this time your urine did show a mild urinary tract infection. Given that you did completely void today I would like you to follow-up with a urologist as a urinary tract infection is not typical for man. I do believe further work-up with a specialist is indicated. Please take the antibiotics as prescribed. Please contact the number below to make an appointment. If they do not have an appointment please follow-up with your primary care physician to get a referral. If you have any worsening symptoms such as fever, vomiting, worsening pain I would like you to return to the emergency department. Your prescription was sent to [facility] TENA Hess [phone] The patient is informed of any results of their evaluation and diagnostic workup and all questions are answered. They are given discharge instructions and return precautions. The patient is stable for discharge. The patient states they understand and agree with the plan and that they will return if their symptoms get worse or if they have any new concerns. The following information is given to patients seen in the emergency department who are being discharged to home. This information is to outline your options for follow-up care. We provide all patients seen in our emergency department with a follow-up referral. The need for follow-up, as well as the timing and circumstances, are variable depending upon the specifics of your emergency department visit. If you don't have a primary care physician on staff, we will provide you with a referral. We always advise you to contact your personal physician following an emergency department visit to inform them of the circumstance of the visit and for follow-up with them and/or the need for any referrals to a consulting specialist. The emergency department will also refer you to a specialist when appropriate. This referral assures that you have the opportunity for follow-up care with a specialist. All of these measure are taken in an effort to provide you with optimal care, which includes your follow-up. Under all circumstances we always encourage you to contact your private physician who remains a resource for coordinating your care. When calling for follow-up care, please make the office aware that this follow-up is from your recent emergency room visit. If for any reason you are refused follow-up, please contact the [facility] Emergency Department at and asked to speak to the emergency department charge nurse. Sepsis Event Note (ED) - Evaluation Sepsis Screening Result: No Definite Risk
[2021-01-30 13:07] LABS: C.TRACHOMATIS BY TMA Negative (Negative); N.GONORRHOEAE BY TMA Negative (Negative)
== END 2021-01-29 17:25 | disposition home or self-care (01) ==
LOC: MW.ED 10:55
DX: N39.0 Urinary tract infection, site not specified (principal); E66.9 Obesity, unspecified; Z68.43 Body mass index [BMI] 50.0-59.9, adult; Z87.891 Personal history of nicotine dependence; Z88.8 Allergy status to other drugs, medicaments and biological substances
CPT/HCPCS: 81001; 87086; 87491; 87591; 99284; A9270; J7030

== ENCOUNTER 2021-02-21 23:42 | Emergency (ER) | payer BC ==
[2021-02-22] MEDS ORDERED: Sodium Chloride 0.9% 1,000 ML IV ONE (00:22)
[2021-02-22] MEDS ORDERED: Sodium Chloride 0.9% 10 ML Syringe FLUSH PRN (00:22)
[2021-02-22] MEDS ORDERED: Sodium Chloride 0.9% 2.5 ML Syringe FLUSH PRN (00:22)
[2021-02-22] MEDS ORDERED: Ketorolac 15 MG/ML SDV IVPUSH ONE (00:22)
--- NOTE | 2021-02-22 00:25 | EDM.PDOC ---
ED HPI GENERAL MEDICAL PROBLEM - General Chief Complaint: Flank Pain Stated Complaint: LOWER BACK PAIN LEFT SIDE Time Seen by Provider: 02/22/21 00:08 - History of Present Illness INITIAL COMMENTS - FREE TEXT/NARRATIVE: History of present illness: [] Patient is several days of left flank pain. Its worse with movement. He feels like the back muscle. He is not lifting anything heavy. The worst exacerbation has been constantly over the last 24 hours. The night after he laid down and was trying to go to sleep he had a worsening of the pain meds severe and continuously bothering him. It is worse again with movement. He has no neurologic deficit distally. He has no history of back injury. Review of systems: As per history of present illness and below otherwise all systems reviewed and negative. Past medical history: As per history of present illness and as reviewed below otherwise noncontributory. Surgical history: As per history of present illness and as reviewed below otherwise noncontributory. Social history: No reported history of drug or alcohol abuse. Family history: As per history of present illness and as reviewed below otherwise noncontributory. Physical exam: Constitutional -obese and well developed, well-nourished and in no acute distress HEENT - normocephalic, no evidence of trauma - external nose and mouth normal - no mass in neck and no JVD - mucosae moist EYES - full EOM, PERRL, no icterus - no evidence of inflammation, injection, or drainage Respiratory - no respiratory distress, equal bilateral expansion, lungs clear to auscultation and no abnormal lung sounds Cardiovascular - Regular Rhythm with S1 and S2 appreciated and no murmur, gallop or rub. GI - abdomen soft without distension or organomegaly - normal bowel sounds - no guard or rebound Musculoskeletal tender muscles in the left paraspinous area just below the costal margin and pain is worse with movement. No gross deformity of long bones or joints - no tenderness, swelling or edema Neurologic - Alert and oriented times four - CN II-XII grossly intact - motor sensory and coordination symmetrically normal Psychiatric - appropriate mood and affect with normal thought content Hematologic - No petechiae or purpura - mucosa appropriate color and sclera not pale - normal nail bed color and refill Integument - no rash or evidence of trauma - normal turgor Diagnostics: [] Therapeutics: [] Impression: [] Plan: [] Definitive disposition and diagnosis as appropriate pending reevaluation and review of above. Left Flank Pain Score (Numeric/FACES): 8 - Related Data Allergies Allergy/AdvReac Type Severity Reaction Status Date / Time meperidine [From Demerol] Allergy Hallucinati Verified 01/29/21 12:39 ons prednisone Allergy Itching Verified 01/29/21 12:39 Home Meds: Home Meds diazePAM [Valium] 5 mg PO TID PRN #15 tab 02/22/21 [Rx] methylPREDNISolone [Medrol Dose Pack] 4 mg PO DAILY #21 tab 02/22/21 [Rx] Past Medical History HEENT History: Reports: None Cardiovascular History: Reports: Arrhythmia, Other (See Below) Other Cardiovascular History: borderline htn Respiratory History: Reports: Sleep Apnea Other Respiratory History: does not use CPAP Gastrointestinal History: Reports: GERD, Other (See Below) Other Gastrointestinal History: difficulty swallowing solid foods at times Genitourinary History: Reports: None Musculoskeletal History: Reports: Fracture Other Musculoskeletal History: ribs, crush L leg, thumb, nose, L fingers, Neurological History: Reports: None Psychiatric History: Reports: None Endocrine/Metabolic History: Reports: Obesity/BMI 30+ Hematologic History: Reports: None Immunologic History: Reports: None Oncologic (Cancer) History: Reports: None Dermatologic History: Reports: None - Infectious Disease History Infectious Disease History: Reports: Chicken Pox, Influenza - Past Surgical History Head Surgeries/Procedures: Reports: None HEENT Surgical History: Reports: None Cardiovascular Surgical History: Reports: None Respiratory Surgical History: Reports: None GI Surgical History: Reports: Appendectomy, EGD Male Surgical History: Reports: None Endocrine Surgical History: Reports: None Neurological Surgical History: Reports: None Musculoskeletal Surgical History: Reports: None Oncologic Surgical History: Reports: None Dermatological Surgical History: Reports: None Social & Family History - Family History Family Medical History: No Pertinent Family History - Caffeine Use Caffeine Use: Reports: Coffee, Tea - Recreational Drug Use Recreational Drug Use: No ED ROS GENERAL - Review of Systems Review Of Systems: Comprehensive ROS is negative, except as noted in HPI. ED EXAM, GENERAL - Physical Exam Exam: See Below Free Text/Narrative:: My physical exam is in the HPI Course - Vital Signs Text/Narrative:: Diagnosis muscle spasm and discharged in satisfactory condition Last Recorded V/S: Last Vital Signs Temp 36.9 C 02/21/21 23:55 Pulse 77 02/22/21 01:25 Resp 18 02/22/21 01:25 BP 151/91 H 02/22/21 01:25 Pulse Ox 98 02/22/21 01:25 - Orders/Labs/Meds Orders: Active Orders 24 hr Category Date Time Status Sodium Chloride 0.9% [Saline Flush] Med 02/22/21 00:22 Active 10 ml FLUSH ASDIRECTED PRN Sodium Chloride 0.9% [Saline Flush] Med 02/22/21 00:22 Active 2.5 ml FLUSH ASDIRECTED PRN Saline Lock Insert [OM.PC] Stat Oth 02/22/21 00:22 Ordered Medication Orders Sodium Chloride (Sodium Chloride 0.9% 10 Ml Syringe) 10 ml FLUSH ASDIRECTED PRN PRN Reason: Keep Vein Open Sodium Chloride (Sodium Chloride 0.9% 2.5 Ml Syringe) 2.5 ml FLUSH ASDIRECTED PRN PRN Reason: Keep Vein Open Labs: Laboratory Tests 02/22/21 02/22/21 02/22/21 Range/Units 00:35 00:35 01:15 WBC 9.59 (4.0-11.0) K/uL RBC 5.46 (4.50-5.90) M/uL Hgb 17.6 H (13.0-17.0) g/dL Hct 49.8 (38.0-50.0) % MCV 91.2 (80.0-98.0) fL MCH 32.2 H (27.0-32.0) pg MCHC 35.3 (31.0-37.0) g/dL RDW Std Deviation 44.7 (28.0-62.0) fl RDW Coeff of Sae 14 (11.0-15.0) % Plt Count 259 (150-400) K/uL MPV 11.20 (7.40-12.00) fL Neut % (Auto) 54.3 (48.0-80.0) % Lymph % (Auto) 34.2 (16.0-40.0) % [facility] % (Auto) 8.7 (0.0-15.0) % Eos % (Auto) 2.4 (0.0-7.0) % Baso % (Auto) 0.4 (0.0-1.5) % Neut # (Auto) 5.2 (1.4-5.7) K/uL Lymph # (Auto) 3.3 H (0.6-2.4) K/uL [facility] # (Auto) 0.8 (0.0-0.8) K/uL Eos # (Auto) 0.2 (0.0-0.7) K/uL Baso # (Auto) 0.0 (0.0-0.1) K/uL Nucleated RBC % 0.0 /100WBC Nucleated RBCs # 0 K/uL Sodium 139 (136-148) mmol/L Potassium 4.5 (3.5-5.1) mmol/L Chloride 103 (98-107) mmol/L Carbon Dioxide 23.6 (21.0-32.0) mmol/L BUN 20 H (7.0-18.0) mg/dL Creatinine 1.1 (0.8-1.3) mg/dL Est Cr Clr Drug Dosing 98.60 mL/min Estimated GFR (MDRD) > 60.0 ml/min Glucose 135 H (74-106) mg/dL Calcium 9.6 (8.5-10.1) mg/dL Urine Color YELLOW Urine Appearance CLEAR Urine pH 6.0 (5.0-8.0) Ur Specific [place] >= 1.030 (1.001-1.035) Urine Protein NEGATIVE (NEGATIVE) mg/dL Urine Glucose (UA) NEGATIVE (NEGATIVE) mg/dL Urine Ketones NEGATIVE (NEGATIVE) mg/dL Urine Occult Blood NEGATIVE (NEGATIVE) Urine Nitrite NEGATIVE (NEGATIVE) Urine Bilirubin NEGATIVE (NEGATIVE) Urine Urobilinogen 1.0 (<2.0) EU/dL Ur Leukocyte Esterase NEGATIVE (NEGATIVE) Meds: Medications Generic Name Dose Route Start Last Admin Trade Name Freq PRN Reason Stop Dose Admin Sodium Chloride 10 ml 02/22/21 00:22 Sodium Chloride 0.9% 10 Ml Syringe FLUSH ASDIRECTED PRN Keep Vein Open Sodium Chloride 2.5 ml 02/22/21 00:22 Sodium Chloride 0.9% 2.5 Ml Syringe FLUSH ASDIRECTED PRN Keep Vein Open Discontinued Medications Generic Name Dose Route Start Last Admin Trade Name Freq PRN Reason Stop Dose Admin Diazepam 5 mg 02/22/21 01:49 Diazepam 5 Mg Tab PO 12/16/21 01:50 ONETIME ONE Fentanyl 50 mcg 02/22/21 01:17 02/22/21 01:22 Fentanyl 50 Mcg/Ml Sdv IVPUSH 02/22/21 01:18 50 mcg ONETIME ONE Administration Sodium Chloride 1,000 mls @ 999 mls/hr 02/22/21 00:22 02/22/21 00:29 Normal Saline IV 02/22/21 01:22 999 mls/hr .Bolus ONE Administration Ketorolac Tromethamine 15 mg 02/22/21 00:22 02/22/21 00:27 Ketorolac 15 Mg/Ml Sdv IVPUSH 02/22/21 00:23 Not Given ONETIME ONE Ketorolac Tromethamine Confirm 02/22/21 00:27 02/22/21 00:28 Ketorolac 30 Mg/Ml Sdv Administered 02/22/21 00:28 Not Given Dose 30 mg .ROUTE .STK-MED ONE Ketorolac Tromethamine 15 mg 02/22/21 00:28 02/22/21 00:29 Ketorolac 30 Mg/Ml Sdv IVPUSH 02/22/21 00:29 15 mg ONETIME ONE Administration Departure - Departure Time of Disposition: 01:52 Disposition: Home, Self-Care 01 Condition: Good Clinical Impression: Back muscle spasm - Discharge Information Prescriptions: methylPREDNISolone [Medrol Dose Pack] 4 mg PO DAILY #21 tab diazePAM [Valium] 5 mg PO TID PRN #15 tab PRN Reason: Muscle Spasm - Painful Instructions: Muscle Cramps and Spasms Forms: ED Department Discharge Additional Instructions: Follow-up primary care Prescriptions went to [facility] [address] [place] [id number] [address] [id number] The following information is given to patients seen in the emergency department who are being discharged to home. This information is to outline your options for follow-up care. We provide all patients seen in our emergency department with a follow-up referral. The need for follow-up, as well as the timing and circumstances, are variable depending upon the specifics of your emergency department visit. If you don't have a primary care physician on staff, we will provide you with a referral. We always advise you to contact your personal physician following an emergency department visit to inform them of the circumstance of the visit and for follow-up with them and/or the need for any referrals to a consulting specialist. The emergency department will also refer you to a specialist when appropriate. This referral assures that you have the opportunity for follow-up care with a specialist. All of these measure are taken in an effort to provide you with optimal care, which includes your follow-up. Under all circumstances we always encourage you to contact your private physician who remains a resource for coordinating your care. When calling for follow-up care, please make the office aware that this follow-up is from your recent emergency room visit. If for any reason you are refused follow-up, please contact the [facility] Emergency Department at and asked to speak to the emergency department charge nurse. Sepsis Event Note (ED) - Focused Exam Vital Signs: Vital Signs Temp Pulse Resp BP Pulse Ox 02/22/21 01:25 77 18 151/91 H 98 02/21/21 23:55 36.9 C 88 18 152/101 H 98 - My Orders Last 24 Hours: My Active Orders 02/22/21 00:22 Sodium Chloride 0.9% [Saline Flush] 10 ml FLUSH ASDIRECTED PRN Sodium Chloride 0.9% [Saline Flush] 2.5 ml FLUSH ASDIRECTED PRN Saline Lock Insert [OM.PC] Stat - Assessment/Plan Last 24 Hours: My Active Orders 02/22/21 00:22 Sodium Chloride 0.9% [Saline Flush] 10 ml FLUSH ASDIRECTED PRN Sodium Chloride 0.9% [Saline Flush] 2.5 ml FLUSH ASDIRECTED PRN Saline Lock Insert [OM.PC] Stat
[2021-02-22] MEDS ORDERED: Ketorolac 30 MG/ML SDV ONE (00:27)
[2021-02-22] MEDS ORDERED: Ketorolac 30 MG/ML SDV IVPUSH ONE (00:28)
[2021-02-22 00:54] LABS: BLOOD UREA NITROGEN,BUN 20 mg/dL (7.0-18.0); CARBON DIOXIDE,CO2 23.6 mmol/L (21.0-32.0); CHLORIDE,CL 103 mmol/L (98-107); GLUCOSE RANDOM 135 mg/dL (74-106); POTASSIUM,K 4.5 mmol/L (3.5-5.1); SODIUM,NA 139 mmol/L (136-148)
[2021-02-22] MEDS ORDERED: fentaNYL 50 MCG/ML SDV IVPUSH ONE (01:17)
--- NOTE | 2021-02-22 01:36 | CT ---
INDICATION: Left flank pain TECHNIQUE: CT Abdomen and pelvis without i.v. contrast. Coronal and sagittal reformats were obtained. COMPARISON: 11/14/2020 FINDINGS: The sensitivity and specificity of the exam are moderately limited by artifacts from the patient`s inability to maintain a breath hold and body habitus. Lower chest: Unremarkable. Liver: Moderate, stable diffuse fatty infiltration of the liver is notedwith mild focal fatty sparing near the gallbladder fossa. Spleen: Unremarkable. Pancreas: Unremarkable. Gallbladder: Unremarkable. Kidney: There is a punctate less than 1 mm stone seen in the lower pole of the left kidney without interval change. No ureteral calculi or obstruction seen. Adrenal: Unremarkable. Bowel: Unremarkable. The appendix is not identified. Vascular: Unremarkable. Lymph: Unremarkable. Peritoneum: Unremarkable. No pneumoperitoneum is seen. No significant ascites is noted. Pelvis: Multiple bilateral calcified pelvic phleboliths are noted. Soft tissue: Unremarkable. Bone: Unremarkable for age. IMPRESSION: 1. Unremarkable with no CT correlate for the patient`s symptoms seen. Dictated by Yahir Bain MD @ 02/22/2021 1:35:26 AM Please note that all CT scans at this facility use dose modulation, iterative reconstruction, and/or weight-based dosing when appropriate to reduce radiation dose to as low as reasonably achievable. Dictated by: Yahir Bain MD @ 02/22/2021 01:35:37 (Electronically Signed)
[2021-02-22] MEDS ORDERED: Diazepam 5 MG Tab PO ONE (01:49)
== END 2021-02-22 02:11 | disposition home or self-care (01) ==
LOC: MW.ED 23:42
DX: M62.830 Muscle spasm of back (principal); E66.9 Obesity, unspecified; Z68.41 Body mass index [BMI] 40.0-44.9, adult
CPT/HCPCS: 36415; 74176; 80048; 81003; 85025; 96374; 96375; 99284; A9270; J1885; J3010; J7030

== ENCOUNTER 2021-03-28 15:42 | Emergency (ER) | payer BC | END 2021-03-28 17:58 | disposition home or self-care (01) | LOC: MW.ED 15:42 | DX: U07.1 COVID-19 (principal); I10 Essential (primary) hypertension; E66.9 Obesity, unspecified; Z68.41 Body mass index [BMI] 40.0-44.9, adult; Z88.5 Allergy status to narcotic agent; Z88.8 Allergy status to other drugs, medicaments and biological substances | CPT/HCPCS: 87804; 99283; U0002 ==

== ENCOUNTER 2022-04-10 07:28 | Day surgery (SDC) | payer BC ==
[~2022-04-10 07:28] MED LIST changes: -Dexmedetomidine 200 MCG/2 ML SDV ONE; -Lidocaine 2% 5 ML SDV ONE; -Ondansetron 4 MG/2 ML SDV ONE; -Propofol 200 MG/20 ML SDV ONE; -fentaNYL 100 MCG/2 ML SDV ONE
[2022-04-10] MEDS ORDERED: ceFAZolin 2 GM in Premix Bag 1 BAG IV SCH (08:00)
[2022-04-10] MEDS ORDERED: Metoclopramide 10 MG/2 ML SDV IVPUSH PRN (08:09)
[2022-04-10] MEDS ORDERED: Morphine 2 MG/ML SYRINGE IVPUSH PRN (08:09)
[2022-04-10] MEDS ORDERED: Albuterol 0.083% 2.5 MG/3 ML Neb Soln NEB PRN (08:09)
[2022-04-10] MEDS ORDERED: Ondansetron 4 MG/2 ML SDV IVPUSH PRN (08:09)
[2022-04-10] MEDS ORDERED: HYDROmorphone 1 MG/ML Syringe IVPUSH PRN (08:09)
[2022-04-10] MEDS ORDERED: Naloxone 0.4 MG/ML SDV IVPUSH PRN (08:09)
[2022-04-10] MEDS ORDERED: fentaNYL 50 MCG/ML SDV IVPUSH PRN (08:09)
[2022-04-10] MEDS ORDERED: Propofol 200 MG/20 ML SDV ONE (08:16)
[2022-04-10] MEDS ORDERED: fentaNYL 250 MCG/5 ML SDV ONE (08:16)
[2022-04-10] MEDS ORDERED: Ondansetron 4 MG/2 ML SDV ONE (08:44)
[2022-04-10] MEDS ORDERED: Dexamethasone 4 MG/ML 5 ML MDV ONE (08:44)
[2022-04-10] MEDS ORDERED: Lidocaine 2% 5 ML SDV ONE (08:44)
[2022-04-10] MEDS ORDERED: Famotidine 20 MG/2 ML SDV ONE (08:44)
[2022-04-10] MEDS ORDERED: Ketorolac 30 MG/ML SDV ONE (08:44)
[2022-04-10] MEDS ORDERED: Lidocaine 1% with EPINEPHrine 1:100,000 10 ML MDV ONE (08:53)
[2022-04-10] MEDS ORDERED: ceFAZolin 2 GM Vial ONE (09:02)
[2022-04-10] MEDS ORDERED: Rocuronium Bromide 50 MG/5 ML Syringe ONE (09:02)
[2022-04-10] MEDS ORDERED: Sugammadex Sodium 200 MG/2 ML VIAL ONE (09:16)
== END 2022-04-10 11:10 | disposition home or self-care (01) ==
LOC: MW.SDS 07:28
PROVIDERS: ATTEND Orthopaedic Surgery
DX: S83.281A Other tear of lateral meniscus, current injury, right knee, initial encounter (principal); M89.9 Disorder of bone, unspecified; G47.33 Obstructive sleep apnea (adult) (pediatric); E66.9 Obesity, unspecified; Z68.41 Body mass index [BMI] 40.0-44.9, adult; Z79.899 Other long term (current) drug therapy; Z88.5 Allergy status to narcotic agent; Z88.8 Allergy status to other drugs, medicaments and biological substances; Z98.890 Other specified postprocedural states; Z87.891 Personal history of nicotine dependence
CPT/HCPCS: 01400; J0131; J0690; J1100; J1885; J2405; J2704; J3010; J3490; J7120